=== PATIENT | male | born 1945 | race Caucasian/White ===

== ENCOUNTER → 2024-08-22 | Outpatient (CLI) | payer MEDICARE, BC, SELFPAY ==
--- NOTE | 2024-08-22 | XR_ITS ---
Examination: PA lateral chest 2 views TECHNIQUE: Upright PA lateral chest 2 views Exam date and time: August 22, 2024 0759 hours Comparison September 03, 2016 INDICATIONS: Chest pain beginning 3 months ago. FINDINGS: Normal heart size Scarring versus pneumonia in the lingular segment left upper lobe Right lung clear Moderate osteopenia IMPRESSION: Scarring versus pneumonia in the lingular segment left upper lobe, clinical correlation advised
[2024-08-22 08:33] LABS: Basophils % (Auto) 1 % (0-2.5); Eosinophils # (Auto) 0.3 Thou/mm3 (0.0-0.5); Eosinophils % (Auto) 5 % (0-10); Hematocrit 47.4 % (41.0-53.0); Hemoglobin 15.4 g/dL (13.5-16.0); Immature Granulocytes % (Auto) 1 % (0-0); Immature Granulocytes Auto 0.03 Thou/mm3 (0.00-0.00); Lymphocytes # (Auto) 1.4 Thou/mm3 (1.0-4.8); Lymphocytes % (Auto) 25 % (10-50); Mean Corpuscular HGB Conc 32.5 g/dl (31.0-37.0); Mean Corpuscular Hemoglobin 29.9 pg (25.0-35.0); Mean Corpuscular Volume 92 fL (80-100); Monocytes # (Auto) 0.7 Thou/mm3 (0.0-0.8); Monocytes % (Auto) 12 % (0-12); Neutrophils # (Auto) 3.3 Thou/mm3 (1.8-7.7); Neutrophils % (Auto) 57 % (37-80); Nucleated Red Blood Cell % 0 /100 WBC (0); Platelet Count 192 Thou/mm3 (140-440); RDW Standard Deviation 47.2 fL (35.1-43.9); Red Blood Count 5.15 Miln/mm3 (4.50-5.90); White Blood Count 5.7 Thou/mm3 (3.8-10.6)
[2024-08-22 08:40] LABS: Glucose Estimated Average 103 mg/dL (80-131); Hemoglobin A1C 5.2 % Hgb (4.8-6.0)
[2024-08-22 08:43] LABS: Vitamin D 25 Hydroxy Total 50.5 ng/mL (7.3-40.2)
[2024-08-22 08:45] LABS: Alanine Aminotransferase 15 U/L (10-49); Albumin, Serum 4.3 gm/dL (3.4-4.8); Albumin/Globulin Ratio 1.6 (1.2-2.2); Alkaline Phosphatase 51 U/L (46-116); Anion Gap 4 (7-16); Aspartate Amino Transferase 21 U/L (0-34); BUN/Creatinine Ratio 14 Ratio (12-20); Bilirubin,Total 0.9 mg/dL (0.3-1.2); Blood Urea Nitrogen 15 mg/dL (9-23); Calcium 9.6 mg/dL (8.3-10.6); Calcium (Corrected) 9.6 mg/dL (8.5-10.1); Carbon Dioxide 33.2 mMol/L (20.0-31.0); Chloride 100 mMol/L (98-107); Cholesterol 194 mg/dL (132-200); Creatinine (Component) 1.1 mg/dL (0.6-1.3); Free T4 (Free Thyroxine) 0.96 ng/dL (0.89-1.76); Globulin 2.7 gm/dL (2.3-3.5); Glucose 83 mg/dL (74-106); HDL Cholesterol 65 mg/dL (40-60); LDL Cholesterol,Calculated 112 mg/dL (0-130); Osmolality,Calculated 273 (275-295); Potassium 4.4 mMol/L (3.4-5.1); Sodium 137 mMol/L (136-145); Triglycerides 84 mg/dL (30-150); eGFR > 60 See Note
[2024-08-22 08:50] LABS: B-Type Natriuretic Peptide 39 pg/mL (0-100)
== END | disposition home or self-care (01) ==
PROVIDERS: PCP Internal Medicine; Referring Provider Internal Medicine; Visit Provider Radiology Diagnostic Radiology
DX: R07.9 Chest pain, unspecified (principal); I11.0 Hypertensive heart disease with heart failure; I50.42 Chronic combined systolic (congestive) and diastolic (congestive) heart failure; E11.9 Type 2 diabetes mellitus without complications; E78.2 Mixed hyperlipidemia; E55.9 Vitamin D deficiency, unspecified; E03.9 Hypothyroidism, unspecified
CPT/HCPCS: 36415; 71046; 80053; 80061; 82306; 83036; 83880; 84439; 84443; 85025

== ENCOUNTER → 2024-09-28 | Outpatient (CLI) | payer MEDICARE, BC, SELFPAY ==
[2024-09-28 11:37] LABS: Albumin, Serum 4.1 gm/dL (3.4-4.8); Anion Gap 3 (7-16); BUN/Creatinine Ratio 20 Ratio (12-20); Blood Urea Nitrogen 20 mg/dL (9-23); Calcium 9.3 mg/dL (8.3-10.6); Calcium (Corrected) 9.3 mg/dL (8.5-10.1); Carbon Dioxide 31.7 mMol/L (20.0-31.0); Chloride 104 mMol/L (98-107); Glucose 87 mg/dL (74-106); Osmolality,Calculated 279 (275-295); Potassium 4.6 mMol/L (3.4-5.1); Sodium 139 mMol/L (136-145); eGFR > 60 See Note
== END | disposition home or self-care (01) ==
PROVIDERS: PCP Internal Medicine; Referring Provider Internal Medicine; Visit Provider Internal Medicine
DX: I10 Essential (primary) hypertension (principal)
CPT/HCPCS: 36415; 80069

== ENCOUNTER → 2024-10-02 | Outpatient (CLI) | payer MEDICARE, BC, SELFPAY ==
--- NOTE | 2024-10-02 11:30 | XR_ITS ---
Examination: CT chest with intravenous contrast 2-D sagittal and coronal reconstructions Exam date and time: October 02, 2024 1230 hours Comparison March 19, 2013 INDICATIONS: Chest pain radiating to the shoulder is beginning 2 months ago, scarring versus pneumonia in the lingular segment on chest x-ray August 22, 2024 CTDI:vol (mGy) 17.4 DLP: (mGycm) 659 Technique: Multiple axial sections of the thorax have been obtained. Sections have been obtained, 3 mm slice thickness. Mediastinal and lung density settings have been obtained. Intravenous contrast administered, 60 cc Isovue-370. 2-D sagittal, coronal images obtained. Low dose protocols were performed. One or more of the following dose reduction techniques were used; automated exposure control, adjustment of the mA and/or KV according to patient size, use of iterative reconstruction technique. Findings: Heavy carotid vascular calcification Calcification thoracic aorta, mediolateral dimension ascending thoracic aorta 4.3 cm No pulmonary artery emboli Significant calcification left main left anterior descending left circumflex coronary arteries Mild enlargement cardiac contour Atelectasis in the left lower lobe and to lesser extent right lower lobe Mild atelectasis in the lingular segment 12 mm liver cyst No gallstones Spleen not enlarged No pancreatic mass IMPRESSION: Mild aneurysmal dilatation ascending thoracic aorta, 4.3 cm Significant calcification left main left anterior descending coronary arteries Atelectasis in the left lower lobe right lower lobe and lingular segment left upper lobe No pneumonic consolidation or pulmonary mass lesion
== END | disposition home or self-care (01) ==
PROVIDERS: PCP Internal Medicine; Referring Provider Internal Medicine; Visit Provider Internal Medicine
DX: I71.20 Thoracic aortic aneurysm, without rupture, unspecified (principal); I25.10 Atherosclerotic heart disease of native coronary artery without angina pectoris; J98.11 Atelectasis
CPT/HCPCS: 71260; A4649; Q9967

== ENCOUNTER → 2024-10-10 | Outpatient (CLI) | payer MEDICARE, BC, SELFPAY ==
--- NOTE | 2024-10-10 | XR_ITS ---
Examination: Shoulder bilateral, 6 views Technique: Shoulder AP internal rotation, AP external rotation, Y view each shoulder total 6 views Exam date and time :October 10, 2024 0721 hrs. Indications: Bilateral shoulder pain radiating to the arms beginning 4 months ago Findings: Moderate osteopenia Mild narrowing left glenohumeral joint Moderate narrowing right glenohumeral joint Bilateral moderate osteoarthritis acromioclavicular joints No fractures OR dislocations No calcific tendinitis Impression: Mild narrowing glenohumeral joint Moderate narrowing right glenohumeral joints Bilateral moderate osteoarthritis acromioclavicular joints
--- NOTE | 2024-10-10 | XR_ITS ---
EXAMINATION: Cervical spine, 5 views Technique: Cervical spine AP, AP odontoid, lateral, bilateral obliques, 5 views Exam date and time: October 10, 2024 0721 hrs. Comparison January 11, 2006 Indications: Neck pain radiating to the arms beginning 4 months ago Findings: Adequate alignment cervical vertebral bodies No cervical fracture Intact odontoid Advanced degenerative disc disease C5-C6, C6-C7 including moderate bilateral neural foraminal stenosis Very heavy carotid vascular calcification The odontoid is intact Impression: Advanced degenerative disc disease C5-C6, C6-C7 including moderate bilateral neural foraminal stenosis Incidental note heavy soft tissue carotid vascular calcification, consider correlation with carotid Doppler sonography follow-up
== END | disposition home or self-care (01) ==
LOC: CDIM 06:55
PROVIDERS: PCP Internal Medicine; Referring Provider Internal Medicine; Visit Provider Internal Medicine
DX: M19.012 Primary osteoarthritis, left shoulder (principal); M19.011 Primary osteoarthritis, right shoulder; M25.812 Other specified joint disorders, left shoulder; M25.811 Other specified joint disorders, right shoulder; M50.322 Other cervical disc degeneration at C5-C6 level; M48.02 Spinal stenosis, cervical region; I65.29 Occlusion and stenosis of unspecified carotid artery
CPT/HCPCS: 72050; 73030

== ENCOUNTER → 2024-11-01 | Outpatient (CLI) | payer MEDICARE, BC, SELFPAY ==
--- NOTE | 2024-11-01 11:30 | XR_ITS ---
Examination: Carotid arterial duplex scan, ultrasound. Date and time of exam: November 01, 2024 1134 hours INDICATIONS: Transient ischemic thorax episodes over several months Technique: Multiple sonographic images have been obtained of the carotid arteries and vertebral arteries, B-mode/grayscale imaging and Doppler spectral analysis and color flow Peak systolic and diastolic velocities have been recorded. Systolic diastolic ratios have been calculated. Findings: Right peak systolic velocities: Distal internal carotid artery peak systolic velocity is 0.5 M/sec Proximal internal carotid artery peak systolic velocity is 0.4 M/sec Carotid bifurcation peak systolic velocity is 0.5 M/sec External carotid artery peak systolic velocity is 0.9 M/sec Vertebral artery flow is antegrade. Left peak systolic velocities: Distal internal carotid artery peak systolic velocity is 0.7 M/sec Proximal internal carotid artery peak systolic velocity is 0.7 M/sec Carotid bifurcation peak systolic velocity is 0.6 M/sec External carotid artery peak systolic velocity is 0.8 M/sec Vertebral artery flow is antegrade Doppler waveform analysis demonstrates no spectral broadening Impression: Right internal carotid artery demonstrates 0-10% stenosis. Left internal carotid artery demonstrates 0-10% stenosis.
== END | disposition home or self-care (01) ==
PROVIDERS: PCP Internal Medicine; Referring Provider Internal Medicine; Visit Provider Internal Medicine
DX: G45.9 Transient cerebral ischemic attack, unspecified (principal)
CPT/HCPCS: 93880

== ENCOUNTER 2025-01-15 07:03 | Day surgery (SDC) | payer MEDICARE, BC, SELFPAY ==
[2025-01-11 16:12] VITALS: BMI 36.1
--- NOTE | 2025-01-14 07:00 | EKG_ITS ---
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
[2025-01-14 09:09] LABS: Basophils # (Auto) 0.1 Thou/mm3 (0.0-0.2); Basophils % (Auto) 1 % (0-2.5); Eosinophils # (Auto) 0.2 Thou/mm3 (0.0-0.5); Eosinophils % (Auto) 3 % (0-10); Hematocrit 49.9 % (41.0-53.0); Hemoglobin 16.2 g/dL (13.5-16.0); Immature Granulocytes % (Auto) 0 % (0-0); Immature Granulocytes Auto 0.02 Thou/mm3 (0.00-0.00); Lymphocytes # (Auto) 1.2 Thou/mm3 (1.0-4.8); Lymphocytes % (Auto) 22 % (10-50); Mean Corpuscular HGB Conc 32.5 g/dl (31.0-37.0); Mean Corpuscular Hemoglobin 30.2 pg (25.0-35.0); Mean Corpuscular Volume 93 fL (80-100); Monocytes # (Auto) 0.6 Thou/mm3 (0.0-0.8); Monocytes % (Auto) 12 % (0-12); Neutrophils # (Auto) 3.4 Thou/mm3 (1.8-7.7); Neutrophils % (Auto) 62 % (37-80); Nucleated Red Blood Cell % 0 /100 WBC (0); Platelet Count 157 Thou/mm3 (140-440); RDW Standard Deviation 51.1 fL (35.1-43.9); Red Blood Count 5.37 Miln/mm3 (4.50-5.90); White Blood Count 5.6 Thou/mm3 (3.8-10.6)
[2025-01-14 09:26] LABS: Anion Gap 4 (7-16); BUN/Creatinine Ratio 15 Ratio (12-20); Blood Urea Nitrogen 17 mg/dL (9-23); Carbon Dioxide 33.2 mMol/L (20.0-31.0); Chloride 103 mMol/L (98-107); Creatinine (Component) 1.1 mg/dL (0.6-1.3); Estimated Creatinine Clearance 65.8 mL/min (>60); Glucose 77 mg/dL (74-106); Osmolality,Calculated 279 (275-295); Potassium 4.5 mMol/L (3.4-5.1); Sodium 140 mMol/L (136-145); eGFR > 60 See Note
[2025-01-14 09:31] LABS: Partial Thromboplastin Time 25.5 Seconds (22.0-36.0); Prothrombin Time 11.2 Seconds (9.0-12.2)
[2025-01-15] VITALS (17 sets, daily range): BP systolic 119–187; BP diastolic 66–108; PULSE 76–89; RESP 17–89; TEMP 36.6–36.8; O2SAT 89–98
--- NOTE | 2025-01-15 07:20 | CHAP ---
Talked with patient briefly. Patient decided he did not want prayer so I gave words of encouragement. He thanked me for coming.
[2025-01-15] MEDS: hydrALAZINE INJ 20 MG/ML VIAL 10 MG IV (09:41)
[2025-01-15] MEDS: ACETAMINOPHEN 500 MG TABLET 1000 MG PO (09:45)
--- NOTE | 2025-01-15 10:04 | ESOP_ITS ---
RE: MEERA CAMERON : 1945 DATE OF OPERATION: 01/15/2025 PROCEDURES PERFORMED: 1. Diagnostic left heart catheterization, selective coronary angiogram, and left ventricular angiogram, CPT 02244. 2. Conscious sedation for 30-minute duration. 3. Ultrasound-guided access, right radial artery. 4. TR band application. DIAGNOSES: Coronary artery disease and abnormal stress test. HISTORY AND INDICATIONS: The patient is an 80-year-old male with a past medical history of hypertension, then had recurrent chest pain and abnormal stress test. Nuclear scan showed inferior wall defects. Hence, coronary angiogram was recommended to assess if the patient is a candidate for intervention and revascularization. DESCRIPTION OF PROCEDURE: The patient was brought to the cardiac catheterization laboratory where he was given 2 mg Versed and 100 mcg fentanyl for conscious sedation. Right radial approach was taken. Right radial artery was cannulated by micropuncture technique. Ultrasound guidance was used and a 6-[place] was introduced. Selective right and left coronary angiogram performed by TIG-4.5 5-[place] catheter diagnostic catheter. Left heart catheterization, left ventricular angiogram performed by TIG-4.5 diagnostic catheter. The patient tolerated the procedure well. No complications. Coronary angiogram showed following findings. Right coronary artery is large and dominant, showed evidence of mild plaque in proximal RCA. No significant stenosis. PDA and PL branches are normal. Left coronary system: Left main coronary artery is normal. Left anterior descending artery showed mild disease involving proximal left anterior descending artery 30% stenosis. Distal left anterior descending artery is normal. Circumflex artery is nondominant, gives off posterolateral branches and obtuse marginal branch. All of them appear normal. Left ventricular pressure is 180/10 mmHg. Aortic pressure 100/80 mmHg. No gradient across the aortic valve. Left ventricular angiogram showed normal left ventricular wall motion. Ejection fraction of 70%. SUMMARY OF FINDINGS AND SUGGESTIONS: 1. Mild coronary artery disease involving proximal right coronary artery and proximal left anterior descending artery with less than 30% stenosis. 2. Normal left ventricular function. Ejection fraction is 70%. RECOMMENDATIONS: The patient is reassured about absence of significant obstructive coronary artery disease. Prognosis is fair in the absence of significant CAD. Recommend medical management for treatment of hypertension. DT: 08:31:00 TT: 09:45:00 Ref: [id number] - TID: [id number]
--- NOTE | 2025-01-15 11:08 | PC.NURSE ---
0836: Pt received for recovery. Report from Gina GOLDSTEIN. Pt groggy, but awake. Resp even, unlabored. VS stable. TR band to right wrist intact with no bleeding, hematoma. Bilateral radial pulses strong, regular. Pt denies pain, 0900: Pt sitting up tolerating po fluids with no difficulty swallowing and no n/v. 0915: Pt tolerating breakfast meal with no problems. at bedside. 0941: BP elevated. Hydralazine given. 0945: Pt has c/o generalized body pain due to arthritis. Acetaminophen given. BP down. TR band air release started. 1045: TR band air release complete. No bleeding, hematoma. Tegaderm and coban applied.
--- NOTE | 2025-01-15 12:08 | PC.NURSE ---
1147: Pt fully awake, oriented x3. BP has remained down. Dressing to right wrist dry, clean, intact with no hematoma. Pt states pain level is down and very tolerable. Pt and stated understanding of discharge instructions. Pt discharged from [facility] in stable condition.
== END 2025-01-15 11:47 | disposition home or self-care (01) ==
PROVIDERS: PCP Internal Medicine; Referring Provider Internal Medicine Cardiovascular Disease; Visit Provider Internal Medicine Cardiovascular Disease
PROC: (CPT 93458; principal; 2025-01-15 07:30)
DX: I25.118 Atherosclerotic heart disease of native coronary artery with other forms of angina pectoris (principal); I10 Essential (primary) hypertension; Z01.810 Encounter for preprocedural cardiovascular examination
CPT/HCPCS: 93458; 36415; 80048; 85025; 85610; 85730; 93005; 99152; A4649; C1769; C1887; C1894; J0171; J0360; J0461; J1643; J2250; J2270; J2310; J2371; J3010; J3490; Q9967; A9270